=== PATIENT | male | born 1980 | race Hispanic/Latino ===

== ENCOUNTER 2017-06-20 11:39 | Emergency (ER) | payer OTHER ==
--- NOTE | 2017-06-20 12:56 | RAD ---
RIGHT SHOULDER 3 VIEWS: Date: 06/20/17 HISTORY: Shoulder injury. FINDINGS: There are no signs of fracture or dislocation. IMPRESSION: Negative right shoulder. POS: [facility]
== END 2017-06-20 12:37 | disposition home or self-care (01) ==
LOC: ERS 11:39
DX: S43.51XA Sprain of right acromioclavicular joint, initial encounter (principal); E78.5 Hyperlipidemia, unspecified; V80.010A Animal-rider injured by fall from or being thrown from horse in noncollision accident, initial encounter; Y93.52 Activity, horseback riding